=== PATIENT | female | born 1965 | race Caucasian/White ===

== ENCOUNTER 2016-05-24 10:15 | Emergency (ER) | payer OTHER ==
[~2016-05-24] VITALS: Ht 170.2 cm; Wt 63.6 kg
[~2016-05-24 10:15] MED LIST: DOXY100T2 PO; HYDR-4003 PO
[2016-05-24 10:18] VITALS: BP 135/98; PULSE 85; RESP 18; O2SAT 100
--- NOTE | 2016-05-24 11:37 | ED.REPORT ---
HPI-URI / Cough / Cold Date of Service May 24, 2016 ED Provider: Elena Bustamante MD The patient is a 51 year old female w/ a hx of HTN and depression who presents to the ED due to bilateral, lymphatic, neck pain onset 2 days ago. She c/o associated back pain, fever, and malaise. Yesterday she had mild photophobia. She denies cough. She has been clean off heroine for 6 months and is currently on methadone. Pto took ibuprofen 12 hrs ago. She is allergic to Sulfa. Nursing Notes Stated Complaint: PAIN IN NECK AND THROAT,COLD SYMPTOM Chief Complaint: General Complaint Nursing Notes Reviewed: Yes Allergies: Coded Allergies: codeine (Verified Adverse Reaction, Severe, UPSET STOMACH, 03/21/13) Uncoded Allergies: SULFA (Allergy, Unknown, UNKNOWN, 03/16/15) A CHILD Scheduled Doxycycline Hyclate (Doxycycline Hyclate) 100 Mg Tablet 100 MG PO BID Gentamicin Sulfate (Gentamicin 0.3% Ophthalmic Solution) 5 Ml Drops 2 DRP LEFT_ EYE UD Scheduled PRN Hydrocodone-Acetaminophen 5-325 mg (Hydrocodone-Acetaminophen 5-325 mg) 1 Each Tablet 1 TABLET PO Q4H PRN PRN For Pain General Time Seen by MD: 10:47 Chief Complaint Other (neck pain) Hx Obtained From: Patient Arrived By: Walk-in Onset Occurred: Just prior to arrival Symptom Duration: Since onset Location: : Neck Severity: Current: Moderate Recent Healthcare: No recent doctor visit, No recent hospitalization Similar Sx Previous: No Past Medical History Past Medical History Previous psychiatric admission in 2005 for depression and PTSD. Hypertension Anxiety Denies HIV or hepatitis. Past Surgical History Right ankle Smoking History Current Every Day Smoker Social History Patient on methadone program. She endorses being "clean for one year." See I&D section of this document for urine tox screen. Alcohol Use: Denies alcohol use Other Social History: Local resident Ambulatory Status Independent Review of Systems Constitutional: Reports: Fever, Malaise Respiratory: Denies: Non-productive cough Allergy / Immune: Reports: Itching (in both eyes) Complete sys rev & neg: except as marked. Musculoskeletal: Reports: Back pain, Neck pain Physical Exam Initial Vital Signs Vital Signs (First) Date Time Temp Pulse Resp B/P Pulse Ox O2 Delivery O2 Flow Rate FiO2 05/24/16 10:18 36.7 85 18 135/98 100 Room Air Initial VS: Reviewed Head / Eyes: Atraumatic, Normocephalic, PERRL Neck: Supple, Non-tender, Full range of motion Cardiovascular: Regular rate & rhythm, Heart sounds normal, Intact distal pulses Abdomen / GI: Soft, Non-tender, No guarding, No rebound, No distention Extremities: Vascular intact, Neuro intact, No swelling, No tenderness Skin: Warm, Dry, No cyanosis Neurologic: Alert, Oriented, Nonfocal Psychiatric: Mood/affect normal, Behavior normal, Normal thought content General/Constitutional: Awake, Alert, Well appearing, Well developed, Well hydrated, Cooperative, Not toxic appearing ENT: Atraumatic, Airway patent, Mucous membranes moist, Pharynx NL, No pooling of secretions, No trismus, Tympanic membs NL, Ext aud canal NL Respiratory / Chest: Atraumatic, Breath sounds NL, Breath sounds = bilat, No respiratory distress, No rales, No rhonchi, No wheezing, No retractions Head / Eyes: Normocephalic both eyes injected left eye dramatically worse, itches and lopez Adenopathy: Positive: Anterior cervical bilat, Posterior cervical bilat Interpretation & Diagnostics Lab Results Interpretation Lab Results Interpretation: negative for influenza A & B Re-Eval/Medical Decision Counseled Regarding: Diagnosis, Lab results, Need for follow-up, When/why to return to ED Discharge & Departure Impression: Primary Impression: Viral syndrome Additional Impression: Bacterial conjunctivitis of left eye Disposition: Home Discharge Condition All VS Reviewed: Yes Condition: Stable Additional Instructions: You most likely have a viral infection. Your influenza test was negative. Get ample rest and drink plenty of fluids. Ibuprofen will help. Your left eye looks like it has also developed a bacterial infection. Please use the gentamicin eyedrops 2 drops every 6 hours until about eye is feeling better for a full 24 hours. This prescription was electronically sent to [facility] for you today. If you develop any new or worsening symptoms, please return to the Emergency Department. I hope you feel better soon! Referrals: Edi Huertas MD (PCP) Scribe Attestation Portion of this note were transcribed by Marianne Isaac. I, Dr. Bustamante, personally performed the history, physical exam, and medical decision-making: I reviewed and confirmed the accuracy for the information in the transcribed note. Signed by: jaci Morris, 05/24/16 1300 copies to: Edi Huertas MD, Shawna L MD May 24, 2016 11:36 Marianne Isaac May 24, 2016 11:43
[2016-05-24] MEDS ORDERED: GENT5DRO26 LEFT_EYE (12:10)
== END 2016-05-24 12:05 | disposition home or self-care (01) ==
LOC: SED 10:15
DX: B34.9 Viral infection, unspecified (principal); H10.022 Other mucopurulent conjunctivitis, left eye; I10 Essential (primary) hypertension; F17.200 Nicotine dependence, unspecified, uncomplicated; Z88.2 Allergy status to sulfonamides; Z88.5 Allergy status to narcotic agent

== ENCOUNTER 2016-12-05 15:06 | Emergency (ER) | payer OTHER ==
[~2016-12-05] VITALS: Ht 170.2 cm; Wt 66.4 kg
[~2016-12-05 15:06] MED LIST changes: +GENT5DRO26 LEFT_EYE
[2016-12-05 15:18] VITALS: BP 153/90; PULSE 74; RESP 16; O2SAT 97
--- NOTE | 2016-12-05 15:20 | ED.REPORT ---
HPI-Chest Pain 40 and Over Date of Service Dec 05, 2016 ED Provider: Larry Tinoco DO Pt is a 51 year old female with a history of hypertension and previous psychiatric history who presents to the ED from the assisted with a panic attack from methadone withdrawal. She states that her last dose of methadone was on 03/04 and she is unable to have it in the assisted because of her urine test. Pt was a previous heroin drug user, but states that she quit six years ago. Additional symptoms include chest pain, SOB, arm pain, shaking legs, nausea, abdominal pain, and chills. She states that she feels like "she is going to ". Nursing Notes Stated Complaint: CHEST PAIN Chief Complaint: Chest Pain Nursing Notes Reviewed: Yes Allergies: Coded Allergies: lorazepam (Verified Allergy, Mild, itch, 12/05/16) codeine (Verified Adverse Reaction, Severe, UPSET STOMACH, 03/21/13) Uncoded Allergies: SULFA (Allergy, Unknown, UNKNOWN, 03/16/15) A CHILD Scheduled Doxycycline Hyclate (Doxycycline Hyclate) 100 Mg Tablet 100 MG PO BID Gentamicin Sulfate (Gentamicin 0.3% Ophthalmic Solution) 5 Ml Drops 2 DRP LEFT_ EYE UD Scheduled PRN Diazepam (Valium) 10 Mg Tablet 10 MG PO TID PRN PRN For Anxiety Hydrocodone-Acetaminophen 5-325 mg (Hydrocodone-Acetaminophen 5-325 mg) 1 Each Tablet 1 TABLET PO Q4H PRN PRN For Pain Promethazine (Promethazine) 25 Mg Tablet 25 MG PO Q6H PRN PRN For Nausea General Time Seen by MD: 15:14 Chief Complaint Other (methadone withdrawal) Hx Obtained From: Patient Arrived By: Police Sudden in Onset?: Yes Symptom Duration: Constant Quality: Painful Severity: Current: Moderate Severity: Maximum: Severe Context Related History: Reports: GERD, Hypertension Recent Healthcare: No recent doctor visit, No recent hospitalization Similar Sx Previous: No Risk Factors )( CAD Risk Stratification Hypertension Risk factors reviewed )( TAD Risk Stratification Hypertension Risk factors reviewed )( PE Risk Stratification Risk factors reviewed Past Medical History Past Medical History Previous psychiatric admission in 2005 for depression and PTSD. Hypertension Anxiety Denies HIV or hepatitis PTSD Bulimia Previous self-mutilation (cutting) Previous heroin and alcohol abuse Panic disorder Past Surgical History Right ankle Smoking History Current Every Day Smoker Social History Patient on methadone program. She endorses being "clean for one year." See I&D section of this document for urine tox screen. Alcohol Use: In recovery Drug Use: In recovery Other Social History: Local resident Ambulatory Status Independent Review of Systems Constitutional: Reports: Chills, Denies: Fever Respiratory: Reports: Shortness of breath Cardiovascular: Reports: Chest pain GI: Reports: Abdominal pain, Nausea, Denies: Vomiting Musculoskeletal: Reports: Extremity pain (arm pain) Neurologic: Reports: Shaking (legs) Psychiatric: Reports: Anxiety Complete sys rev & neg: except as marked. Physical Exam Initial Vital Signs Vital Signs (First) Date Time Temp Pulse Resp B/P Pulse Ox O2 Delivery O2 Flow Rate FiO2 12/05/16 15:18 36.8 74 16 153/90 97 Room Air Initial VS: Reviewed Head / Eyes: Atraumatic, Normocephalic Neck: Supple, Full range of motion Lymphatic: No lymphadenopathy Extremities: Vascular intact, Neuro intact, No swelling, No tenderness Skin: Warm, Dry, No cyanosis General/Constitutional: Awake, Alert Behavior: Positive: Agitated Crying Shaking Respiratory / Chest: Atraumatic, Breath sounds NL, Breath sounds = bilat, No respiratory distress Cardiovascular: Heart rate NL, Regular rhythm, Heart sounds NL Abdomen: Soft, Non-tender Interpretation & Diagnostics Lab Results Interpretation Result Diagram: 12/05/16 1611 12/05/16 1611 Test 12/05/16 16:11 White Blood Count 9.7th/mm3 (3.8-10.1) Red Blood Count 5.75mil/mm3 (3.90-5.20) Hemoglobin 15.7g/dL (12.0-15.6) Hematocrit 46.2% (35.0-46.0) Mean Corpuscular Volume 80.3fL (81-100) Mean Corpuscular Hemoglobin 27.3pg (27.0-35.0) Mean Corpuscular Hemoglobin Concent 34.0% (32.0-37.0) Red Cell Distribution Width 14.2% (12.3-15.4) Platelet Count 282bil/L (150-400) Neutrophils (%) (Auto) 69.5% (40-74) Lymphocytes (%) (Auto) 22.9% (14-46) Monocytes (%) (Auto) 6.9% (4-12) Eosinophils (%) (Auto) 0.3% (0-5) Basophils (%) (Auto) 0.1% (0-3) Sodium Level 133mEq/L (134-144) Potassium Level 3.6mEq/L (3.5-5.2) Chloride Level 93mEq/L (97-108) Carbon Dioxide Level 19mmol/L (18-29) Blood Urea Nitrogen 14mg/dL (6-24) Creatinine 0.61mg/dL (0.57-1.00) Estimat Glomerular Filtration Rate 149mL/min (>59) Glucose Level 98mg/dL (60-99) Calcium Level 9.8mg/dL (8.5-10.1) Magnesium Level 2.2mg/dL (1.6-2.6) Total Bilirubin 0.5mg/dL (0.0-1.2) Aspartate Amino Transf (AST/SGOT) 22U/L (0-50) Alanine Aminotransferase (ALT/SGPT) 19U/L (0-32) Alkaline Phosphatase 92U/L (25-150) Troponin T < 0.010ug/L (0.0-0.011) Total Protein 8.5g/dL (6.4-8.4) Albumin 4.3g/dL (3.4-5.0) Hold Hernandez Top Tube Received (Received) ECG Interpretation ECG Interpretation: Sinus rhyhtm, rate 64 Left atrial enlargement Anterior septal infarct, old No acute ST changes Time: 15:42 Interpreted by: ED physician X-Ray Chest Interpretation Chest Xray Interpretation: IMPRESSION: No acute cardiopulmonary disease process. Dictated by: Quita Singh MD, PhD on 12/05/2016 at 14:34 Approved by: Quita Singh MD, PhD on 12/05/2016 at 14:35 View: Portable, 1 view Interpretation / Wet Read by: Interpret - Radiologist Re-Eval/Medical Decision Source of Hx: Old records Time of Eval: 17:24 Re-Evaluation/Progress Note: Patient rechecked. Patient states she still feels nauseated and cramping in legs. Discussed plan for discharge. Patient understands and agrees with plan. F/U instructions and RTER warnings given. All questions addressed at this time. Counseled Regarding: Diagnosis, Lab results, Need for follow-up, When/why to return to ED Discharge & Departure Primary Impression: Narcotic withdrawal Disposition: [facility]/LAW ENF[facility] Discharge Condition All VS Reviewed: Yes Condition: Stable Patient Instructions: Narcotic Pain Management (ED) Additional Instructions: Thank you for entrusting us with your medical care today. Your emergency department evaluation today including examination and lab work are reassuring. Take medication as directed. Please return to the emergency department for any new or worsening conditions including any difficulty breathing, fevers, chills, nausea, vomiting, chest pain , lightheadedness, or weakness. Referrals: Edi Huertas MD (PCP) Scribe Attestation Portions of this note were transcribed by Meredith Mayer. I, Dr. Tinoco, personally performed the history, physical exam and medical decision-making; I reviewed and confirmed the accuracy of the information in the transcribed note. copies to: Edi Huertas MD, Gary R DO Dec 05, 2016 15:20 Meredith Mayer Dec 05, 2016 15:28
[2016-12-05] MEDS ORDERED: Ondansetron 8 mg ODT Tablet PO ONE (15:25)
--- NOTE | 2016-12-05 15:36 | DRSVH ---
PROCEDURE: X-RAY CHEST ONE VIEW, PORTABLE ([id number]) INDICATIONS: Chest pain. TECHNIQUE: One view of the chest was acquired. COMPARISON: [facility], , CHEST 1VW (PORTABLE), 04/15/2006, 18:36. FINDINGS: Surgical changes and devices: None. Lungs and pleura: No pleural effusions or pneumothorax. Lungs are clear. Mediastinum: Mediastinal contours appear normal. Heart size is normal. Bones and chest wall: Convex right thoracolumbar spine scoliosis is stable. No suspicious bony lesio ns. Overlying soft tissues appear unremarkable. IMPRESSION: No acute cardiopulmonary disease process. Dictated by: Quita Singh MD, PhD on 12/05/2016 at 14:34 Approved by: Quita Singh MD, PhD on 12/05/2016 at 14:35
[2016-12-05 16:15] VITALS: BP 176/113; PULSE 55; RESP 14; O2SAT 96
[2016-12-05 16:17] LABS: BASOPHILS % (AUTO) 0.1 % (0-3); EOSINOPHILS % (AUTO) 0.3 % (0-5); MONOCYTES % (AUTO) 6.9 % (4-12); Mean Corpuscular Hemoglobin 27.3 pg (27.0-35.0); Mean Corpuscular Volume 80.3 fL (81-100); NEUTROPHILS % (AUTO) 69.5 % (40-74); Platelet Count 282 bil/L (150-400)
[2016-12-05] MEDS ORDERED: Nitroglycerin 2% 1 Gm Ointment TOPICAL ONE (16:25)
[2016-12-05 16:26] VITALS: BP 185/120; PULSE 59; RESP 16; O2SAT 97
[2016-12-05 16:37] LABS: TROPONIN T < 0.010 ug/L (0.0-0.011)
[2016-12-05 16:47] LABS: Magnesium 2.2 mg/dL (1.6-2.6)
[2016-12-05 17:08] VITALS: BP 168/105; PULSE 58; RESP 16; O2SAT 97
[2016-12-05] MEDS ORDERED: DIAZ10TA PO (17:39)
[2016-12-05] MEDS ORDERED: PROM25TA14 PO (17:39)
[2016-12-05 18:12] VITALS: BP 158/97; PULSE 67; RESP 16; O2SAT 97
== END 2016-12-05 18:24 ==
LOC: SED 15:06
DX: F11.23 Opioid dependence with withdrawal (principal); F41.0 Panic disorder [episodic paroxysmal anxiety]; R07.9 Chest pain, unspecified; R06.02 Shortness of breath; M79.603 Pain in arm, unspecified; R25.1 Tremor, unspecified; R11.0 Nausea; R10.9 Unspecified abdominal pain; R68.83 Chills (without fever); R45.1 Restlessness and agitation; I10 Essential (primary) hypertension; F41.8 Other specified anxiety disorders; F43.10 Post-traumatic stress disorder, unspecified; F17.200 Nicotine dependence, unspecified, uncomplicated; Z91.5 Personal history of self-harm; Z88.5 Allergy status to narcotic agent
CPT/HCPCS: 36415; 71010; 80053; 83735; 84484; 85025; 93005; 96372; 99285; J1885; Q0169